=== PATIENT | male | born 1950 | race Caucasian/White ===

== ENCOUNTER 2022-08-19 09:04 | Inpatient (IN) | payer MEDICARE ==
[~2022-08-19] VITALS: Ht 170.2 cm; Wt 91.0 kg
[2022-08-19 09:57] LABS: BASO% 0.4 % (0-3); EOS% 2.9 % (0-8); HEMATOCRIT 52.1 % (39.0-50.0); HEMOGLOBIN 17.3 g/dl (14.0-18.0); IMMATURE GRANULOCYTES 0.5 % (0.0-5.0); MEAN CELL VOLUME 96.5 fL CALC (80.0-100.0); MEAN CORPUSCULAR HGB CONC 33.2 g/dL CAL (32.0-36.0); MONO% 6.4 % (2-13); NEUT# 6.94 thou/uL (1.82-7.42); NEUT% 71.8 % (42-76); RED BLOOD COUNT 5.4 mill/uL (4.70-6.10); RED CELL DISTRI WIDTH 12.2 % (11.5-15.5)
[2022-08-19 10:14] LABS: ALBUMIN 4.6 g/dL (3.2-5.0); ALKALINE PHOSPHATASE 95 u/l (38-126); ANION GAP 12 (6-22 (CALC)); BILIRUBIN, TOTAL 0.6 mg/dL (0.2-1.3); BUN 32 mg/dL (8-23); BUN/CREATININE RATIO 24 (12-20 (CALC)); CARBON DIOXIDE 26 mmol/l (22-30); CHLORIDE 104 mmol/l (95-108); CREATININE 1.3 mg/dL (0.7-1.3); GFR FOR AFR.AMER. > 60 ML/MIN (>=60 (CALC)); GFR OTHER RACES 54 ML/MIN (>=60 (CALC)); LIPASE 62 u/l (23-300); POTASSIUM 4.7 mmol/l (3.5-5.1); SGOT/AST 39 u/l (19-48); SODIUM 137 mmol/l (137-146); TOTAL PROTEIN 8.1 g/dL (6.3-8.2)
[2022-08-19] MEDS ORDERED: ZESTRIL5 M1 PO (12:48)
[2022-08-19] MEDS ORDERED: HYDROCHLOROT25 MG PO (12:49)
[2022-08-19] MEDS ORDERED: SIMVASTATIN5 MG PO (12:49)
[2022-08-19] MEDS ORDERED: ADVAIR DISK1 PO (12:51)
[2022-08-19 19:17] VITALS: BP 138/69
[2022-08-19 23:40] VITALS: BP 123/80
[2022-08-20 04:00] VITALS: BP 122/70
[2022-08-20 05:44] LABS: MEAN CORPUSCULAR HGB CONC 33.7 g/dL CAL (32.0-36.0); RED BLOOD COUNT 4.42 mill/uL (4.70-6.10); RED CELL DISTRI WIDTH 12.1 % (11.5-15.5)
[2022-08-20 05:48] LABS: HEMATOCRIT 43.3 % (39.0-50.0); HEMOGLOBIN 14.6 g/dl (14.0-18.0)
[2022-08-20 06:19] LABS: ALBUMIN 3.9 g/dL (3.2-5.0); ALKALINE PHOSPHATASE 76 u/l (38-126); ANION GAP 11 (6-22 (CALC)); BUN 27 mg/dL (8-23); BUN/CREATININE RATIO 24 (12-20 (CALC)); CARBON DIOXIDE 23 mmol/l (22-30); CHLORIDE 108 mmol/l (95-108); CREATININE 1.1 mg/dL (0.7-1.3); GFR FOR AFR.AMER. > 60 ML/MIN (>=60 (CALC)); GFR OTHER RACES > 60 ML/MIN (>=60 (CALC)); MAGNESIUM 2.4 mg/dL (1.6-2.3); POTASSIUM 4.3 mmol/l (3.5-5.1); SGOT/AST 34 u/l (19-48); SODIUM 138 mmol/l (137-146)
[2022-08-20 06:23] LABS: BILIRUBIN, TOTAL 0.2 mg/dL (0.2-1.3)
[2022-08-20 07:11] VITALS: BP 146/86
[2022-08-20 11:09] VITALS: BP 136/73
[2022-08-20 11:46] LABS: URINE BILIRUBIN - DIPSTICK NEGATIVE (NEGATIVE); URINE BLOOD DIPSTICK NEGATIVE (NEGATIVE); URINE COLOR YELLOW; URINE GLUCOSE - DIPSTICK NEGATIVE (NEGATIVE); URINE KETONE NEGATIVE (NEGATIVE); URINE LEUK ESTERASE NEGATIVE (NEGATIVE); URINE NITRITE - DIPSTICK NEGATIVE (Negative); URINE PH 5.5 (4.5-8.0); URINE PROTEIN - DIPSTICK NEGATIVE (NEG-TRACE); URINE UROBILINOGEN - DIPSTICK 0.2 E.U./dL (0.2)
[2022-08-20 15:42] VITALS: BP 127/67
[2022-08-20 18:52] VITALS: BP 123/63
[2022-08-21 00:05] VITALS: BP 117/61
[2022-08-21 03:54] VITALS: BP 137/83
[2022-08-21 05:39] LABS: BASO% 0.1 % (0-3); HEMATOCRIT 44.3 % (39.0-50.0); HEMOGLOBIN 14.5 g/dl (14.0-18.0); IMMATURE GRANULOCYTES 0.2 % (0.0-5.0); LYMPH% 5.6 % (15-41); MEAN CELL VOLUME 98.7 fL CALC (80.0-100.0); MEAN CORPUSCULAR HGB 32.3 pG CALC (26.0-32.0); MEAN CORPUSCULAR HGB CONC 32.7 g/dL CAL (32.0-36.0); MONO% 2.7 % (2-13); NEUT# 14.35 thou/uL (1.82-7.42); NEUT% 91.4 % (42-76); RED BLOOD COUNT 4.49 mill/uL (4.70-6.10); RED CELL DISTRI WIDTH 12.4 % (11.5-15.5)
[2022-08-21 05:50] LABS: ALKALINE PHOSPHATASE 67 u/l (38-126); ANION GAP 10 (6-22 (CALC)); BUN 24 mg/dL (8-23); BUN/CREATININE RATIO 26 (12-20 (CALC)); CARBON DIOXIDE 21 mmol/l (22-30); CHLORIDE 111 mmol/l (95-108); CREATININE 0.9 mg/dL (0.7-1.3); GFR FOR AFR.AMER. > 60 ML/MIN (>=60 (CALC)); GFR OTHER RACES > 60 ML/MIN (>=60 (CALC)); MAGNESIUM 2.6 mg/dL (1.6-2.3); POTASSIUM 4.7 mmol/l (3.5-5.1); SGOT/AST 40 u/l (19-48); SODIUM 137 mmol/l (137-146); TOTAL PROTEIN 7.4 g/dL (6.3-8.2)
[2022-08-21 06:15] VITALS: BP 130/67
[2022-08-21 06:25] LABS: BILIRUBIN, TOTAL 0.4 mg/dL (0.2-1.3)
[2022-08-21 12:24] VITALS: BP 140/103
[2022-08-21 14:56] VITALS: BP 140/90
[2022-08-21 20:37] VITALS: BP 128/80
[2022-08-22] VITALS (7 sets, daily range): BP systolic 117–136; BP diastolic 71–87
[2022-08-22 06:32] LABS: ALBUMIN 4.4 g/dL (3.2-5.0); ALKALINE PHOSPHATASE 72 u/l (38-126); ANION GAP 14 (6-22 (CALC)); BILIRUBIN, TOTAL 0.5 mg/dL (0.2-1.3); BUN 24 mg/dL (8-23); BUN/CREATININE RATIO 26 (12-20 (CALC)); CARBON DIOXIDE 25 mmol/l (22-30); CHLORIDE 106 mmol/l (95-108); CREATININE 0.9 mg/dL (0.7-1.3); GFR FOR AFR.AMER. > 60 ML/MIN (>=60 (CALC)); GFR OTHER RACES > 60 ML/MIN (>=60 (CALC)); MAGNESIUM 2.6 mg/dL (1.6-2.3); POTASSIUM 4.3 mmol/l (3.5-5.1); SGOT/AST 40 u/l (19-48); SODIUM 141 mmol/l (137-146); TOTAL PROTEIN 7.8 g/dL (6.3-8.2)
[2022-08-22 06:33] LABS: BASO% 0.1 % (0-3); HEMOGLOBIN 15.2 g/dl (14.0-18.0); IMMATURE GRANULOCYTES 0.4 % (0.0-5.0); LYMPH% 6.8 % (15-41); MEAN CELL VOLUME 98.7 fL CALC (80.0-100.0); MEAN CORPUSCULAR HGB 31.9 pG CALC (26.0-32.0); MEAN CORPUSCULAR HGB CONC 32.3 g/dL CAL (32.0-36.0); MONO% 1.9 % (2-13); NEUT# 12.15 thou/uL (1.82-7.42); NEUT% 90.8 % (42-76); RED BLOOD COUNT 4.76 mill/uL (4.70-6.10); RED CELL DISTRI WIDTH 12.7 % (11.5-15.5)
[2022-08-23 04:47] VITALS: BP 137/79
[2022-08-23 05:37] LABS: ALBUMIN 3.3 g/dL (3.2-5.0); ALKALINE PHOSPHATASE 59 u/l (38-126); ANION GAP 10 (6-22 (CALC)); BILIRUBIN, TOTAL 0.3 mg/dL (0.2-1.3); BUN 24 mg/dL (8-23); BUN/CREATININE RATIO 28 (12-20 (CALC)); CARBON DIOXIDE 23 mmol/l (22-30); CHLORIDE 107 mmol/l (95-108); CREATININE 0.9 mg/dL (0.7-1.3); GFR FOR AFR.AMER. > 60 ML/MIN (>=60 (CALC)); GFR OTHER RACES > 60 ML/MIN (>=60 (CALC)); MAGNESIUM 2.4 mg/dL (1.6-2.3); POTASSIUM 4.6 mmol/l (3.5-5.1); SGOT/AST 30 u/l (19-48); SODIUM 136 mmol/l (137-146); TOTAL PROTEIN 6.2 g/dL (6.3-8.2)
[2022-08-23 05:42] LABS: BASO% 0.1 % (0-3); HEMOGLOBIN 13.4 g/dl (14.0-18.0); IMMATURE GRANULOCYTES 0.3 % (0.0-5.0); LYMPH% 7.8 % (15-41); MEAN CELL VOLUME 97.4 fL CALC (80.0-100.0); MEAN CORPUSCULAR HGB 32.1 pG CALC (26.0-32.0); MEAN CORPUSCULAR HGB CONC 32.9 g/dL CAL (32.0-36.0); MONO% 4.1 % (2-13); NEUT# 9.17 thou/uL (1.82-7.42); NEUT% 87.7 % (42-76); RED BLOOD COUNT 4.18 mill/uL (4.70-6.10); RED CELL DISTRI WIDTH 12.4 % (11.5-15.5)
[2022-08-23 05:44] LABS: HEMATOCRIT 40.7 % (39.0-50.0)
[2022-08-23 06:16] VITALS: BP 126/85
[2022-08-23 08:14] VITALS: BP 140/70
[2022-08-23] MEDS ORDERED: PREDNISONE10 MG PO (08:47)
[2022-08-23] MEDS ORDERED: DOXYCYCLINE100 MG PO (08:47)
[2022-08-23] MEDS ORDERED: TRAMADOL HCL50 MG PO (08:51)
== END 2022-08-23 10:16 | disposition home or self-care (01) | DRG 194 ==
LOC: ED 09:04 → ED-I 12:00 → ED 12:44 → ICU 12:45 → MS2 12:45
PROVIDERS: Family Medicine; Nurse Practitioner Family; ADMIT Internal Medicine; ATTEND Internal Medicine
DX: J10.00 Influenza due to other identified influenza virus with unspecified type of pneumonia (principal); J44.0 Chronic obstructive pulmonary disease with (acute) lower respiratory infection; I10 Essential (primary) hypertension; K59.00 Constipation, unspecified; E78.00 Pure hypercholesterolemia, unspecified; F17.200 Nicotine dependence, unspecified, uncomplicated; Z20.822 Contact with and (suspected) exposure to COVID-19
CPT/HCPCS: G0378; J1650; Q9967